=== PATIENT | male | born 1995 | race Caucasian/White ===

== ENCOUNTER 2018-03-07 19:26 | Emergency (ER) | payer MEDICAID ==
--- NOTE | 2018-03-07 20:13 | EDM.PDOC ---
ED HPI GENERAL MEDICAL PROBLEM - General Chief Complaint: ENT Problem Stated Complaint: Pain and bleeding to gum Time Seen by Provider: 03/07/18 20:09 Source of Information: Reports: Patient History Limitations: Reports: No Limitations - History of Present Illness INITIAL COMMENTS - FREE TEXT/NARRATIVE: Patient noted pain and bleeding to left lower gum today. Possibly due to eating potato chips. 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 ED ROS ENT - Review of Systems Review Of Systems: See Below Constitutional: Reports: No Symptoms HEENT: Reports: Other (left lower gingival pain) Respiratory: Reports: No Symptoms Cardiovascular: Reports: No Symptoms Endocrine: Reports: No Symptoms GI/Abdominal: Reports: No Symptoms : Reports: No Symptoms Musculoskeletal: Reports: No Symptoms Skin: Reports: No Symptoms Neurological: Reports: No Symptoms Psychiatric: Reports: No Symptoms Hematologic/Lymphatic: Reports: No Symptoms Immunologic: Reports: No Symptoms ED EXAM, ENT - Physical Exam Exam: See Below Exam Limited By: No Limitations General Appearance: Alert, WD/WN, No Apparent Distress Ears: Hearing Grossly Normal Nose: Normal Inspection Mouth/Throat: Normal Gums, Normal Teeth, Other (Small abrasion to the left buccal mucosa adjacent to gingiva. No active bleeding. No dental tenderness. No gingival swelling.) Head: Atraumatic, Normocephalic Neck: Full Range of Motion Respiratory/Chest: No Respiratory Distress Neurological: Alert, Normal Cognition Psychiatric: Normal Affect, Normal Mood Skin: Warm, Dry Departure - Departure Time of Disposition: 20:13 Disposition: Home, Self-Care 01 Condition: Good Clinical Impression: Abrasion of buccal mucosa - Discharge Information Referrals: PCP,Not In Area [Primary Care Provider] - Forms: ED Department Discharge Additional Instructions: Eat soft foods for the next couple of days. Follow up if symptoms don't improve or worsen. - Problem List & Annotations (1) Abrasion of buccal mucosa SNOMED Code(s): 777819994 Code(s): S00.512A - ABRASION OF ORAL CAVITY, INITIAL ENCOUNTER Status: Acute Qualifiers: Encounter type: initial encounter Qualified Code(s): S00.512A - Abrasion of oral cavity, initial encounter
== END 2018-03-07 20:30 | disposition home or self-care (01) ==
LOC: FB.ED 19:26
DX: S00.512A Abrasion of oral cavity, initial encounter (principal); X58.XXXA Exposure to other specified factors, initial encounter
CPT/HCPCS: 99282

== ENCOUNTER 2018-03-07 22:45 | Emergency (ER) | payer MEDICAID ==
[2018-03-07] MEDS ORDERED: Bacitracin Oint 15 GM Tube TOP ONE (23:10)
--- NOTE | 2018-03-07 23:16 | EDM.PDOC ---
ED HPI GENERAL MEDICAL PROBLEM - General Chief Complaint: Laceration Stated Complaint: LACERATION RT THUMB Time Seen by Provider: 03/07/18 23:11 Source of Information: Reports: Patient History Limitations: Reports: No Limitations - History of Present Illness INITIAL COMMENTS - FREE TEXT/NARRATIVE: Patient sustained a laceration to right thumb [employer] after grazed against broken glass. Patient believes there is a piece of skin missing. Patient is right hand dominant. Tdap 1 year ago. Onset: Today Location: Reports: Other (right thumb) Quality: Reports: Ache Severity: Mild Improves with: Reports: None Worsens with: Reports: None Associated Symptoms: Reports: No Other Symptoms ED ROS GENERAL - Review of Systems Review Of Systems: See Below Constitutional: Reports: No Symptoms HEENT: Reports: No Symptoms Respiratory: Reports: No Symptoms Cardiovascular: Reports: No Symptoms Endocrine: Reports: No Symptoms GI/Abdominal: Reports: No Symptoms : Reports: No Symptoms Skin: Reports: Other (right thumb laceration) Neurological: Reports: No Symptoms Psychiatric: Reports: No Symptoms Hematologic/Lymphatic: Reports: No Symptoms Immunologic: Reports: No Symptoms ED EXAM, SKIN/RASH Exam: See Below Exam Limited By: No Limitations General Appearance: Alert, WD/WN, No Apparent Distress Throat/Mouth: No Airway Compromise Head: Atraumatic, Normocephalic Neck: Full Range of Motion Respiratory/Chest: No Respiratory Distress Cardiovascular: Normal Peripheral Pulses Extremities: Other (1.5 cm avulsion laceration to thomason aspect distal right thumb, actively oozing blood) Neurological: Alert, Normal Cognition Skin: Other (as above) Location, Skin: Upper Extremity, Right Course - Orders/Labs/Meds Orders: Active Orders 24 hr Category Date Time Status Bacitracin [Bacitracin Oint] Med 03/07/18 23:10 Once 0.9 gm TOP ONETIME ONE - Re-Assessments/Exams Free Text/Narrative Re-Assessment/Exam: 03/07/18 23:15 Bacitracin ointment, adaptec and gauze dressing applied. Departure - Departure Time of Disposition: 23:16 Disposition: Home, Self-Care 01 Condition: Good Clinical Impression: Laceration of thumb - Discharge Information Instructions: Laceration Care, Adult, [id number] Referrals: PCP,None [Primary Care Provider] - Additional Instructions: Change dressing daily. Follow up with any signs of infection. - Problem List & Annotations (1) Laceration of thumb SNOMED Code(s): 301738112 Code(s): S61.019A - LACERATION W/O FOREIGN BODY OF THMB W/O DAMAGE TO NAIL, INIT Status: Acute Current Visit: Yes Annotation/Comment:: Avulsion laceration Qualifiers: Encounter type: initial encounter Damage to nail status: without damage Foreign body presence: without foreign body Laterality: right Qualified Code (s): S61.011A - Laceration without foreign body of right thumb without damage to nail, initial encounter - Problem List Review Problem List Initiated/Reviewed/Updated: Yes - My Orders Last 24 Hours: My Active Orders 03/07/18 23:10 Bacitracin [Bacitracin Oint] 0.9 gm TOP ONETIME ONE - Assessment/Plan Last 24 Hours: My Active Orders 03/07/18 23:10 Bacitracin [Bacitracin Oint] 0.9 gm TOP ONETIME ONE
== END 2018-03-07 23:22 | disposition home or self-care (01) ==
LOC: FB.ED 22:45
DX: S61.011A Laceration without foreign body of right thumb without damage to nail, initial encounter (principal); W25.XXXA Contact with sharp glass, initial encounter
CPT/HCPCS: 99282; A9270-GY